=== PATIENT | female | born 1940 | race Two or more races ===

== ENCOUNTER 2020-11-13 19:16 | Inpatient (IN) | payer OTHER ==
[~2020-11-13] VITALS: Ht 157.5 cm; Wt 55.0 kg
[~2020-11-13 19:16] MED LIST: ATEN-60 PO; CARI-277 PO; CLON0.5T10 PO; ENAL20TA8 PO; METF-372 PO; NOR10T PO; SIMV20TA2 PO; [UNRECOGNIZED DRUG - CODE] PO
[2020-11-13 22:10] LABS: Basophils # (auto) 0 10 ^3/uL (0-0.2); Basophils % (auto) 0.4 % (0.0-2.0); Eosinophils # (auto) 0.2 10 ^3/uL (0-0.8); Eosinophils % (auto) 2.1 % (0.0-7.0); Hematocrit 37.5 % (36.0-46.0); Hemoglobin 13.3 g/dL (12.2-16.2); Lymphocytes # (auto) 2.3 10 ^3/uL (0.4-5.4); Lymphocytes % (auto) 23.8 % (10.0-50.0); Mean Corpuscular Hgb Conc. 35.4 g/dL (32.0-36.0); Mean Corpuscular Volume 90.5 fL (80.0-100.0); Monocytes # (auto) 0.5 10 ^3/uL (0-1.3); Monocytes % (auto) 4.7 % (0.0-12.0); Neutrophils # (auto) 6.7 10 ^3/uL (1.6-8.6); Nucleated Red Blood Cells % 0.1 %; Platelet Count (auto) 223 10^3/uL (140-450); Red Blood Cells 4.14 10^6/uL (4.0-5.20); Red Cell Distribution Width 13.1 % (11.8-14.3); White Blood Cell 9.7 10^3/uL (4.4-10.8)
[2020-11-13 22:19] LABS: Albumin 3.7 g/dL (3.4-5.0); Anion Gap 6 (5-15); Blood Urea Nitrogen 17 mg/dL (7-18); Calcium 8.4 mg/dL (8.5-10.1); Carbon Dioxide 29 mmol/L (21-32); Chloride 104 mmol/L (98-107); Glucose 157 mg/dL (74-106); Sodium 139 mmol/L (136-145)
[2020-11-13 22:25] LABS: Alanine Aminotransferase 51 U/L (13-56); Alkaline Phosphatase 124 U/L (45-117); Aspartate Aminotransferase 33 U/L (15-37); BUN/Creatinine Ratio 21.3; Bilirubin, Total 0.5 mg/dL (0.2-1.0); GFR African American 88 mL/min; GFR Non-African American 73 mL/min; Total Protein 7.3 g/dL (6.4-8.2)
[2020-11-13 22:46] LABS: INR 1.03 (0.9-1.15); Partial Thromboplastin Time 26.3 sec (23.0-31.2)
[2020-11-13] MEDS ORDERED: IOHEXOL 350 MG/ML 100ML IJ ONE (23:26)
[2020-11-14] MEDS ORDERED: ACETAMINOPHEN 500 MG TAB PO ONE (00:45)
[2020-11-14] MEDS ORDERED: ONDANSETRON HCL 4 MG/2 ML VIAL IV PRN (04:15)
[2020-11-14] MEDS ORDERED: DOCUSATE SOD 100 MG CAP PO PRN (04:15)
[2020-11-14] MEDS ORDERED: MORPHINE SULF INJ 2 MG/ML SYRINGE 1ML IV PRN (04:15)
[2020-11-14] MEDS ORDERED: NITROGLYCERIN 0.4 MG SL TAB SL PRN (04:15)
[2020-11-14] MEDS ORDERED: ACETAMINOPHEN 325 MG TAB PO PRN (04:15)
[2020-11-14] MEDS ORDERED: MORPHINE SULFATE 4 MG/ML SYR/VIAL IV PRN (04:15)
[2020-11-14] MEDS ORDERED: DEXTROSE (50%) 50ML SYRG IV PRN (04:15)
[2020-11-14] MEDS ORDERED: hydrALAZINE HCL 20 MG/ML VL IV PRN (04:30)
[2020-11-14] MEDS: GABAPENTIN 100 MG CAP PO SCH ×3 (05:10→21:43)
[2020-11-14] MEDS: SODIUM CHLOR 0.9% PF (SALINE LOCK) 10ML VIAL/SYR IV SCH ×4 (05:44→21:42)
[2020-11-14] MEDS ORDERED: TEMAZEPAM 15 MG CAP PO ONE (06:20)
[2020-11-14] MEDS: InsuLIN REG 1unit/0.01ml Soln (100units/ml) SC SCH ×4 (07:25→21:44)
[2020-11-14] MEDS: ACCU-CHEK COMFORT CURVE STRIP VI SCH ×4 (07:26→21:44)
[2020-11-14 07:27] LABS: Basophils # (auto) 0 10 ^3/uL (0-0.2); Basophils % (auto) 0.5 % (0.0-2.0); Eosinophils # (auto) 0.2 10 ^3/uL (0-0.8); Eosinophils % (auto) 1.9 % (0.0-7.0); Hematocrit 36.3 % (36.0-46.0); Hemoglobin 12.7 g/dL (12.2-16.2); Lymphocytes # (auto) 2.1 10 ^3/uL (0.4-5.4); Lymphocytes % (auto) 24.6 % (10.0-50.0); Mean Corpuscular Hemoglobin 31.6 pg (28.0-32.0); Mean Corpuscular Hgb Conc. 34.9 g/dL (32.0-36.0); Mean Corpuscular Volume 90.6 fL (80.0-100.0); Monocytes # (auto) 0.4 10 ^3/uL (0-1.3); Monocytes % (auto) 4.9 % (0.0-12.0); Neutrophils # (auto) 5.8 10 ^3/uL (1.6-8.6); Neutrophils % (auto) 68.1 % (37.0-80.0); Nucleated Red Blood Cells % 0.2 %; Platelet Count (auto) 233 10^3/uL (140-450); Red Blood Cells 4.01 10^6/uL (4.0-5.20); Red Cell Distribution Width 13.1 % (11.8-14.3); White Blood Cell 8.5 10^3/uL (4.4-10.8)
[2020-11-14 07:43] LABS: Albumin 3.4 g/dL (3.4-5.0); BUN/Creatinine Ratio 21.7; Calcium 8.5 mg/dL (8.5-10.1)
[2020-11-14 07:48] LABS: Bilirubin, Total 0.6 mg/dL (0.2-1.0); Total Protein 7.1 g/dL (6.4-8.2)
[2020-11-14] MEDS: MULTIPLE VITAMIN TAB PO SCH (09:53)
[2020-11-14] MEDS: ZINC SULFATE 220mg CAP or TAB PO SCH (09:53)
[2020-11-14] MEDS: FAMOTIDINE 20 MG TAB PO SCH ×2 (09:53→21:43)
[2020-11-14] MEDS: ATENOLOL 50 MG TAB PO SCH (09:53)
[2020-11-14] MEDS: ASCORBIC ACID 500 MG TAB PO SCH ×2 (09:54→21:44)
[2020-11-14] MEDS: ENOXAPARIN SOD 40 MG/0.4 ML SYRINGE SC SCH (10:00)
[2020-11-14 17:00] VITALS: BP 134/49
[2020-11-14 20:00] VITALS: BP_SYST 122; BP_SYST 125; BP_DIAS 45; BP_DIAS 61
[2020-11-14 20:02] VITALS: BP 95/54
[2020-11-14 20:04] VITALS: BP 130/60
[2020-11-14 20:36] LABS: Urine Bacteria NONE SEEN /hpf (None Seen); Urine Blood 3+ /uL (Negative); Urine Hyaline Cast FEW /lpf (0 - 2); Urine Specific Gravity 1.014 (1.001-1.035); Urine WBC 47 /hpf (0 - 5)
[2020-11-14] MEDS: ATORVASTATIN 20 MG TAB PO SCH (21:43)
[2020-11-14 22:00] VITALS: BP 122/45
[2020-11-14] MEDS: HYDROcodone-ACET 5/325MG TAB PO PRN (23:36)
[2020-11-14] MEDS ORDERED: ASPI-266 PO (23:49)
[2020-11-15 05:00] VITALS: BP 156/61
[2020-11-15] MEDS: SODIUM CHLOR 0.9% PF (SALINE LOCK) 10ML VIAL/SYR IV SCH ×3 (05:11→21:45)
[2020-11-15] MEDS: GABAPENTIN 100 MG CAP PO SCH ×3 (05:11→21:46)
[2020-11-15] MEDS: InsuLIN REG 1unit/0.01ml Soln (100units/ml) SC SCH ×4 (06:07→21:47)
[2020-11-15] MEDS: ACCU-CHEK COMFORT CURVE STRIP VI SCH ×4 (06:07→21:47)
[2020-11-15 06:48] LABS: Albumin 2.8 g/dL (3.4-5.0); Basophils # (auto) 0 10 ^3/uL (0-0.2); Basophils % (auto) 0.6 % (0.0-2.0); Calcium 8.4 mg/dL (8.5-10.1); Eosinophils # (auto) 0.2 10 ^3/uL (0-0.8); Eosinophils % (auto) 3.4 % (0.0-7.0); Hematocrit 33.9 % (36.0-46.0); Hemoglobin 11.8 g/dL (12.2-16.2); Lymphocytes # (auto) 2.3 10 ^3/uL (0.4-5.4); Mean Corpuscular Hemoglobin 31.8 pg (28.0-32.0); Mean Corpuscular Hgb Conc. 34.7 g/dL (32.0-36.0); Mean Corpuscular Volume 91.6 fL (80.0-100.0); Monocytes # (auto) 0.4 10 ^3/uL (0-1.3); Monocytes % (auto) 5.4 % (0.0-12.0); Neutrophils # (auto) 4.3 10 ^3/uL (1.6-8.6); Neutrophils % (auto) 58.6 % (37.0-80.0); Platelet Count (auto) 212 10^3/uL (140-450); Potassium 4.1 mmol/L (3.5-5.1); Red Cell Distribution Width 13.2 % (11.8-14.3); White Blood Cell 7.3 10^3/uL (4.4-10.8)
[2020-11-15 06:50] LABS: BUN/Creatinine Ratio 30.9
[2020-11-15 06:53] LABS: Bilirubin, Total 0.5 mg/dL (0.2-1.0); Total Protein 6.2 g/dL (6.4-8.2)
[2020-11-15 09:00] VITALS: BP 115/42
[2020-11-15] MEDS: ASPirin 81 mg TAB PO SCH (09:52)
[2020-11-15] MEDS: ZINC SULFATE 220mg CAP or TAB PO SCH (09:52)
[2020-11-15] MEDS: ENOXAPARIN SOD 40 MG/0.4 ML SYRINGE SC SCH (09:53)
[2020-11-15] MEDS: MULTIPLE VITAMIN TAB PO SCH (09:53)
[2020-11-15] MEDS: FAMOTIDINE 20 MG TAB PO SCH ×2 (09:53→21:47)
[2020-11-15] MEDS: ASCORBIC ACID 500 MG TAB PO SCH ×2 (09:53→21:47)
[2020-11-15] MEDS: ATENOLOL 50 MG TAB PO SCH (10:05)
[2020-11-15 12:41] VITALS: BP 119/60
[2020-11-15 16:55] VITALS: BP 111/41
[2020-11-15] MEDS: ATORVASTATIN 20 MG TAB PO SCH (21:46)
[2020-11-16 02:34] LABS: INR 1.18 (0.9-1.15); Partial Thromboplastin Time 23.4 sec (23.0-31.2)
[2020-11-16 05:00] VITALS: BP 144/59
[2020-11-16] MEDS: GABAPENTIN 100 MG CAP PO SCH ×3 (06:19→21:52)
[2020-11-16] MEDS: SODIUM CHLOR 0.9% PF (SALINE LOCK) 10ML VIAL/SYR IV SCH ×6 (06:19→22:06)
[2020-11-16] MEDS: ACCU-CHEK COMFORT CURVE STRIP VI SCH ×4 (06:19→21:54)
[2020-11-16] MEDS: InsuLIN REG 1unit/0.01ml Soln (100units/ml) SC SCH ×4 (06:38→21:53)
[2020-11-16 08:30] VITALS: BP 161/47
[2020-11-16] MEDS: FAMOTIDINE 20 MG TAB PO SCH ×2 (10:00→21:52)
[2020-11-16] MEDS: MULTIPLE VITAMIN TAB PO SCH (10:00)
[2020-11-16] MEDS: ASPirin 81 mg TAB PO SCH (10:00)
[2020-11-16] MEDS: ATENOLOL 50 MG TAB PO SCH (10:00)
[2020-11-16] MEDS: ASCORBIC ACID 500 MG TAB PO SCH ×2 (10:00→21:52)
[2020-11-16] MEDS: ENOXAPARIN SOD 40 MG/0.4 ML SYRINGE SC SCH (10:00)
[2020-11-16] MEDS: ZINC SULFATE 220mg CAP or TAB PO SCH (10:00)
[2020-11-16] MEDS ORDERED: ANGIOMAX 250 MG VIAL IV ONE ×2 (10:02→11:36)
[2020-11-16] MEDS ORDERED: SODIUM CHL 0.9% 0 ML ONE (10:03)
[2020-11-16] MEDS ORDERED: fentaNYL CITRATE 100 MCG/2 ML VL ONE (10:03)
[2020-11-16] MEDS ORDERED: MIDAZOLAM HCL 1MG/1ML-2 ML VIAL ONE (10:03)
[2020-11-16] MEDS ORDERED: IODIXANOL 320MG/ML 100ML BTL IV ONE ×2 (10:09→11:35)
[2020-11-16] MEDS ORDERED: hydrALAZINE HCL 20 MG/ML VL ONE (10:19)
[2020-11-16] MEDS ORDERED: SODIUM CHL 0.9% 50 ML ONE (11:36)
[2020-11-16] MEDS ORDERED: ACETAMINOPHEN 500 MG TAB PO PRN (12:15)
[2020-11-16] MEDS ORDERED: ONDANSETRON HCL 4 MG/2 ML VIAL IV PRN (12:15)
[2020-11-16] MEDS ORDERED: SODIUM CHLORIDE 0.9% 500 ML IV ONE (15:30)
[2020-11-16] MEDS: levoFLOXacin 500 MG TAB PO SCH (15:40)
[2020-11-16] MEDS: HYDROcodone-ACET 5/325MG TAB PO PRN (15:57)
[2020-11-16 17:00] VITALS: BP 142/60
[2020-11-16] MEDS: ATORVASTATIN 20 MG TAB PO SCH (21:52)
[2020-11-16 22:00] VITALS: BP 144/68
[2020-11-17] MEDS: HYDROcodone-ACET 5/325MG TAB PO PRN (02:03)
[2020-11-17 04:52] VITALS: BP 146/60
[2020-11-17] MEDS: SODIUM CHLOR 0.9% PF (SALINE LOCK) 10ML VIAL/SYR IV SCH ×5 (05:30→22:25)
[2020-11-17] MEDS: GABAPENTIN 100 MG CAP PO SCH ×3 (06:51→22:13)
[2020-11-17] MEDS: ACCU-CHEK COMFORT CURVE STRIP VI SCH ×4 (06:52→22:31)
[2020-11-17] MEDS: InsuLIN REG 1unit/0.01ml Soln (100units/ml) SC SCH ×4 (06:58→22:30)
[2020-11-17 08:40] VITALS: BP 153/97
[2020-11-17] MEDS: ZINC SULFATE 220mg CAP or TAB PO SCH (09:33)
[2020-11-17] MEDS: levoFLOXacin 500 MG TAB PO SCH (09:33)
[2020-11-17] MEDS: MULTIPLE VITAMIN TAB PO SCH (09:33)
[2020-11-17] MEDS: ASPirin 81 mg TAB PO SCH (09:33)
[2020-11-17] MEDS: FAMOTIDINE 20 MG TAB PO SCH ×2 (09:33→22:13)
[2020-11-17] MEDS: ASCORBIC ACID 500 MG TAB PO SCH ×2 (09:35→22:14)
[2020-11-17] MEDS: ENOXAPARIN SOD 40 MG/0.4 ML SYRINGE SC SCH (09:35)
[2020-11-17] MEDS: ATENOLOL 50 MG TAB PO SCH (09:35)
[2020-11-17 13:00] VITALS: BP 128/54
[2020-11-17 16:59] VITALS: BP 159/62
[2020-11-17 21:33] VITALS: BP 170/82
[2020-11-17] MEDS: ATORVASTATIN 20 MG TAB PO SCH (22:13)
[2020-11-18] MEDS ORDERED: TEMAZEPAM 15 MG CAP PO ONE (00:30)
[2020-11-18] MEDS: SODIUM CHLOR 0.9% PF (SALINE LOCK) 10ML VIAL/SYR IV SCH ×3 (05:55→14:01)
[2020-11-18] MEDS: GABAPENTIN 100 MG CAP PO SCH ×2 (05:56→15:45)
[2020-11-18] MEDS: InsuLIN REG 1unit/0.01ml Soln (100units/ml) SC SCH ×3 (05:58→18:21)
[2020-11-18] MEDS: ACCU-CHEK COMFORT CURVE STRIP VI SCH ×3 (05:59→18:20)
[2020-11-18 06:09] VITALS: BP 138/59
[2020-11-18 08:00] VITALS: BP 151/52
[2020-11-18] MEDS ORDERED: LIDOCAINE 2%HCL (LOCAL ANESTH.) INJ 20ML MDV ONE (08:06)
[2020-11-18] MEDS ORDERED: IODIXANOL 320MG/ML 100ML BTL IV ONE (08:06)
[2020-11-18] MEDS ORDERED: CLINDAMYCIN 600MG IV 50 ML IV ONE ×2 (08:16→08:30)
[2020-11-18] MEDS ORDERED: ceFAZolin 1GM VL ONE (08:21)
[2020-11-18] MEDS ORDERED: BACITRACIN INJ 50000 UNIT VIAL ONE (08:21)
[2020-11-18] MEDS ORDERED: ROPIVACAINE 0.5% (5MG/ML) 20ML AMPULE IJ ONE (08:21)
[2020-11-18] MEDS ORDERED: PROPOFOL 10 MG/ML 20 ML IV ONE (08:43)
[2020-11-18] MEDS ORDERED: ePHEDrine SULFATE 50 MG/ML AMP ONE (08:49)
[2020-11-18] MEDS ORDERED: ONDANSETRON HCL 4 MG/2 ML VIAL IV PRN (09:15)
[2020-11-18] MEDS ORDERED: HYDROmorphone HCL 2 MG/ML VL IV PRN (09:15)
[2020-11-18] MEDS ORDERED: ANGIOMAX 250 MG VIAL IV ONE (09:57)
[2020-11-18] MEDS ORDERED: fentaNYL CITRATE 100 MCG/2 ML VL ONE (09:57)
[2020-11-18] MEDS ORDERED: SODIUM CHL 0.9% 0 ML ONE (09:57)
[2020-11-18] MEDS ORDERED: MIDAZOLAM HCL 1MG/1ML-2 ML VIAL ONE (09:57)
[2020-11-18] MEDS: ENOXAPARIN SOD 40 MG/0.4 ML SYRINGE SC SCH (10:00)
[2020-11-18 12:58] VITALS: BP 131/46
[2020-11-18] MEDS: ASPirin 81 mg TAB PO SCH (13:48)
[2020-11-18] MEDS: levoFLOXacin 500 MG TAB PO SCH (13:48)
[2020-11-18] MEDS: ZINC SULFATE 220mg CAP or TAB PO SCH (13:48)
[2020-11-18] MEDS: MULTIPLE VITAMIN TAB PO SCH (13:48)
[2020-11-18] MEDS: ATENOLOL 50 MG TAB PO SCH (13:49)
[2020-11-18] MEDS: FAMOTIDINE 20 MG TAB PO SCH (13:49)
[2020-11-18] MEDS: ASCORBIC ACID 500 MG TAB PO SCH (13:49)
[2020-11-18] MEDS ORDERED: SODIUM CHLOR 0.9% PF (SALINE LOCK) 10ML VIAL/SYR IV SCH (14:00)
[2020-11-18 16:45] VITALS: BP 136/47
[2020-11-18] MEDS ORDERED: CILOSTAZOL 100 MG TAB PO SCH (17:00)
[2020-11-18] MEDS ORDERED: LEVO500T31 PO (17:12)
[2020-11-18] MEDS ORDERED: CILO100T PO (17:12)
[2020-11-18] MEDS: HYDROcodone-ACET 5/325MG TAB PO PRN (19:50)
[2020-11-18 20:44] VITALS: BP_SYST 120; BP_SYST 147; BP_DIAS 68; BP_DIAS 73
== END 2020-11-18 21:40 | disposition home health service (06) | DRG 256 ==
LOC: EDBD 19:16 → ER 19:20 → TELE 19:21 → TELE-WESTW 11-14 12:50
PROVIDERS: ADMIT Nurse Practitioner Family; ATTEND Internal Medicine
PROC: B41GYZZ Fluoroscopy of Left Lower Extremity Arteries using Other Contrast (ICD-10-PCS; 2020-11-16)
PROC: B41FYZZ Fluoroscopy of Right Lower Extremity Arteries using Other Contrast (ICD-10-PCS; 2020-11-16)
PROC: B41GYZZ Fluoroscopy of Left Lower Extremity Arteries using Other Contrast (ICD-10-PCS; 2020-11-18)
PROC: B44GZZ3 Ultrasonography of Left Lower Extremity Arteries, Intravascular (ICD-10-PCS; 2020-11-18)
PROC: 0Y6Q0Z3 Detachment at Left 1st Toe, Low, Open Approach (ICD-10-PCS; principal; 2020-11-18 08:32)
DX: E11.52 Type 2 diabetes mellitus with diabetic peripheral angiopathy with gangrene (principal); I70.262 Atherosclerosis of native arteries of extremities with gangrene, left leg; R55 Syncope and collapse; E11.40 Type 2 diabetes mellitus with diabetic neuropathy, unspecified; I10 Essential (primary) hypertension; E11.621 Type 2 diabetes mellitus with foot ulcer; E11.65 Type 2 diabetes mellitus with hyperglycemia; L97.529 Non-pressure chronic ulcer of other part of left foot with unspecified severity; E78.5 Hyperlipidemia, unspecified; F02.80 Dementia in other diseases classified elsewhere, unspecified severity, without behavioral disturbance, psychotic disturbance, mood disturbance, and anxiety; G30.9 Alzheimer's disease, unspecified; I25.10 Atherosclerotic heart disease of native coronary artery without angina pectoris; J45.909 Unspecified asthma, uncomplicated; Z86.73 Personal history of transient ischemic attack (TIA), and cerebral infarction without residual deficits; Z87.891 Personal history of nicotine dependence; Z90.710 Acquired absence of both cervix and uterus; Z95.1 Presence of aortocoronary bypass graft; R79.89 Other specified abnormal findings of blood chemistry; Z88.0 Allergy status to penicillin; Z20.822 Contact with and (suspected) exposure to COVID-19; Z90.49 Acquired absence of other specified parts of digestive tract; F41.9 Anxiety disorder, unspecified
CPT/HCPCS: 36415; 70450; 70551; 71045; 71275; 72125; 73502; 73700; 80053; 80061; 81001; 82962; 83036; 83605; 83880; 84484; 85025; 85379; 85610; 85730; 86850; 86900; 86901; 87040; 87086; 87426; 93005; 93306; 93926; 93971; 96372; 96374; 99152; 99153; G0378; J0690; J1815; J2250; J2405; J2704; J3490; Q9967